=== PATIENT | female | born 1975 | race Asian ===

== ENCOUNTER 2018-10-24 22:17 | Emergency (ER) | payer OTHER ==
[~2018-10-24] VITALS: Ht 160 cm; Wt 67.1 kg
[2018-10-24 22:44] VITALS: Ht 160 cm; Wt 67.1 kg
[2018-10-25 00:08] LABS: BASOPHIL % 0.3 % (0-2); PLATELET COUNT 240 x10^3mcL (130-400); RED CELL DISTRIBUTION WIDTH 12.9 % (11.5-14.5)
[2018-10-25 00:35] LABS: CALCIUM 8.8 mg/dL (8.5-10.1); CARBON DIOXIDE 26.4 mmol/L (21-32); CHLORIDE SERUM 104 mmol/L (98-107); CREATININE SERUM 0.7 mg/dL (0.6-1.0); GFR1 > 60 mL/min; GLUCOSE SERUM 100 mg/dL (74-106); POTASSIUM SERUM 3.9 mmol/L (3.5-5.1); SODIUM SERUM 140 mmol/L (136-145)
[2018-10-25 00:49] LABS: ALBUMIN 3.8 g/dL (3.4-5.0); ALKALINE PHOSPHATASE 55 U/L (46-116); ALT/SGPT 20 U/L (14-59); AST/SGOT 16 U/L (15-37); BILIRUBIN TOTAL 0.12 mg/dL (0.20-1.00); FREE T4 0.92 ng/dL (0.76-1.46); LIPASE 100 IU/L (73-393)
[2018-10-25 01:04] VITALS: BP 126/92
== END 2018-10-25 01:05 | disposition home or self-care (01) ==
LOC: ED 22:17
PROVIDERS: Emergency Medicine
DX: I10 Essential (primary) hypertension (principal); R00.2 Palpitations
CPT/HCPCS: 36415; 84439; Q0092